=== PATIENT | female | born 1950 | race Hispanic/Latino ===

== ENCOUNTER 2018-09-07 07:03 | Outpatient (CLI) | payer OTHER | END 2018-09-07 07:04 | disposition home or self-care (01) | LOC: C.LAB 07:03 | DX: I10 Essential (primary) hypertension (principal); D53.9 Nutritional anemia, unspecified; E03.9 Hypothyroidism, unspecified; E55.9 Vitamin D deficiency, unspecified; E11.9 Type 2 diabetes mellitus without complications ==

== ENCOUNTER 2018-09-14 12:33 | Outpatient (CLI) | payer OTHER | END 2018-09-14 12:34 | disposition home or self-care (01) | LOC: C.USIC 12:33 ==

== ENCOUNTER 2018-11-15 07:32 | Outpatient (CLI) | payer OTHER | END 2018-11-15 07:33 | disposition home or self-care (01) | LOC: C.LAB 07:32 → C.PAT 07:33 | DX: H25.13 Age-related nuclear cataract, bilateral (principal) ==

== ENCOUNTER 2018-11-30 07:55 | Day surgery (SDC) | payer OTHER ==
[2018-11-15 07:42] VITALS: BMI 23.6
[~2018-11-30 07:55] MED LIST: Lactated Ringer's 500 ML IV ONE; Phenylephrine 2.5% Opht Soln OD SCH; Tropicamide 1% Opht SOLUTION OD SCH
[2018-11-30] MEDS ORDERED: Hyaluronidase Human, Recombi 150 U/ML VIAL ONE (08:15)
[2018-11-30] MEDS ORDERED: Povidone Iodine Ophthalmic 5% Soln ONE (08:15)
[2018-11-30] MEDS ORDERED: Carbachol 0.01% IO ONE (08:15)
[2018-11-30] MEDS ORDERED: Chondroitin/Hyaluronate Opth Syringe KIT (0.55 ml-0.5 ml) IO ONE (08:15)
[2018-11-30] MEDS ORDERED: Tobramycin/Dexamethasone OPHT OINT ONE (08:15)
[2018-11-30] MEDS ORDERED: Lidocaine 2% MPF (5 ml) Inj ONE (08:16)
[2018-11-30] MEDS ORDERED: Lactated Ringer's 1,000 ML IV ONE (08:45)
[2018-11-30] MEDS ORDERED: Midazolam 2 MG/2 ML VIAL ONE (10:07)
[2018-11-30] MEDS ORDERED: Propofol 10 mg/ml Inj (20 ML) ONE (10:10)
[2018-11-30] MEDS ORDERED: Lactated Ringer's 500 ML IV ONE (10:19)
[2018-11-30 10:50] VITALS: TEMP 97.6
[2018-11-30 11:39] VITALS: BP 101/59; PULSE 81; RESP 18; O2SAT 97
--- NOTE | 2018-11-30 21:49 | OP ---
PROCEDURE DATE: 11/30/2018 PREOPERATIVE DIAGNOSIS: Mature nuclear cataract, right eye. POSTOPERATIVE DIAGNOSIS: Mature nuclear cataract, right eye. PROCEDURE: Cataract extraction with lens implant, right eye. ATTENDING: Adam Vines MD TYPE OF ANESTHESIA: Retrobulbar block. COMPLICATIONS: None. ESTIMATED BLOOD LOSS: Zero. PROCEDURE: The patient was brought to the operating room and properly identified. Anesthesia staff administered intravenous sedation and retrobulbar block was given to the surgical eye. The patient was then prepped and draped in the usual sterile fashion. Attention was turned to the surgical eye. A lid speculum was placed into interpalpebral fissure. Sitting temporally, two paracentesis incisions were made. The anterior chamber was filled with viscoelastic and a triplanar clear corneal incision was made. Using a cystitome, anterior capsular leaflet was created. Utrata forceps were used to create a continuous curvilinear capsulorrhexis. Balanced salt solution on a cannula was used to hydrodissect and hydrodelineate the lens. The lens was then phacoemulsified with no complications. Automated irrigation and aspiration was used to remove the cortex. Viscoelastic was used to deepen the anterior chamber. The lens was placed in the capsular bag. Automated irrigation and aspiration was used to remove the viscoelastic. The anterior chamber was filled with Miochol. The wounds were hydrated with balanced salt solution. There was noted to be no leak at the end of the case and the lens was well positioned. The lid speculum was removed. The eye was given antibiotics and steroids and covered with a patch and shield. The patient was returned to the recovery room in stable condition. Adam Vines MD
== END 2018-11-30 11:19 | disposition home or self-care (01) ==
LOC: C.SDS 07:55
PROVIDERS: ATTEND Ophthalmology
DX: H25.13 Age-related nuclear cataract, bilateral (principal)
CPT/HCPCS: 66984; J2250; J2704; J3470; J7120; V2632

== ENCOUNTER 2018-12-14 06:18 | Day surgery (SDC) | payer OTHER ==
[~2018-12-14 06:18] MED LIST changes: -Phenylephrine 2.5% Opht Soln OD SCH; +Phenylephrine 2.5% Opht Soln OS SCH; -Tropicamide 1% Opht SOLUTION OD SCH; +Tropicamide 1% Opht SOLUTION OS SCH
[2018-12-14] MEDS ORDERED: Lactated Ringer's 500 ML IV ONE (07:25)
[2018-12-14 07:38] VITALS: BMI 24.5
[2018-12-14] MEDS ORDERED: Carbachol 0.01% IO ONE ×2 (07:44→08:08)
[2018-12-14] MEDS ORDERED: Chondroitin/Hyaluronate Opth Syringe KIT (0.55 ml-0.5 ml) IO ONE (07:45)
[2018-12-14] MEDS ORDERED: Povidone Iodine Ophthalmic 5% Soln ONE (08:08)
[2018-12-14] MEDS: Tetracaine 0.5% Ophth (OR ONLY) ONE ×2 (09:10→09:25)
[2018-12-14] MEDS: Povidone Iodine Ophthalmic 5% Soln ONE ×2 (09:10→09:15)
[2018-12-14] MEDS ORDERED: Midazolam 2 MG/2 ML VIAL ONE (09:11)
[2018-12-14] MEDS: Lidocaine 2% MPF (5 ml) Inj ONE ×2 (09:12→09:16)
[2018-12-14] MEDS: Hyaluronidase Human, Recombi 150 U/ML VIAL ONE ×2 (09:12→09:16)
[2018-12-14] MEDS: Tobramycin/Dexamethasone OPHT OINT ONE ×2 (09:25→09:28)
[2018-12-14] MEDS ORDERED: Propofol 10 mg/ml Inj (20 ML) ONE (09:33)
[2018-12-14 12:57] VITALS: O2SAT 95
--- NOTE | 2018-12-14 14:03 | OP ---
PROCEDURE DATE: 12/14/2018 PREOPERATIVE DIAGNOSIS: Matured cataract, left eye. POSTOPERATIVE DIAGNOSIS: Matured cataract, left eye. OPERATIVE PROCEDURE: Cataract extraction with lens implant, left eye. ATTENDING: Adam Vines MD. ANESTHESIA: Retrobulbar block. COMPLICATIONS: None. ESTIMATED BLOOD LOSS: Zero. PROCEDURE: The patient was brought to the operating room and properly identified. Anesthesia staff administered intravenous sedation and retrobulbar block was given to the surgical eye. The patient was then prepped and draped in the usual sterile fashion. Attention was turned to the surgical eye. A lid speculum was placed into interpalpebral fissure. Sitting temporally, two paracentesis incisions were made. The anterior chamber was filled with viscoelastic and a triplanar clear corneal incision was made. Using a cystitome, anterior capsular leaflet was created. Utrata forceps were used to create a continuous curvilinear capsulorrhexis. Balanced salt solution on a cannula was used to hydrodissect and hydrodelineate the lens. The lens was then phacoemulsified with no complications. Automated irrigation and aspiration was used to remove the cortex. Viscoelastic was used to deepen the anterior chamber. The lens was placed in the capsular bag. Automated irrigation and aspiration was used to remove the viscoelastic. The anterior chamber was filled with Miochol. The wounds were hydrated with balanced salt solution. There was noted to be no leak at the end of the case and the lens was well positioned. The lid speculum was removed. The eye was given antibiotics and steroids and covered with a patch and shield. The patient was returned to the recovery room in stable condition. Adam Vines MD
[2018-12-14 14:54] VITALS: TEMP 97.8
[2018-12-14 15:02] VITALS: BP 111/67; PULSE 61; RESP 15
== END 2018-12-14 14:17 | disposition home or self-care (01) ==
LOC: C.SDS 06:18
PROVIDERS: ATTEND Ophthalmology
DX: H26.9 Unspecified cataract (principal)
CPT/HCPCS: 66984; J2250; J2405; J2704; J3010; J3470; J7120; V2632